=== PATIENT | female | born 1935 | race Caucasian/White ===

== ENCOUNTER 2018-05-23 20:00 | Inpatient (IN) | payer BC, MEDICARE ==
[~2018-05-23] VITALS: Ht 160 cm; Wt 68.5 kg
[2018-05-23 20:00] VITALS: BP 195/83
[~2018-05-23 20:00] MED LIST: ALBUTEROL2.5 MG/3 M INH; HYDRALAZINE HCL10 MG ORAL
--- NOTE | 2018-05-23 20:00 | NUR ---
ED Nurse Note: Received report. Pt LEATHAA from home on simple mask 15L. Pt c/o SOB and left side pleural pain 8/10 when moving. Ambulance personnel said she was running a fever of 102. Pt placed on cardiac cath technician. Will carry out MD's orders.
--- NOTE | 2018-05-23 20:07 | Emergency Room Report ---
History of Present Illness General Chief Complaint: Dyspnea/Respdistress Source: Patient, EMS Present Illness HPI Patient is brought in for chest pain and dyspnea via EMS. She was recently evaluated in the hospital and discharged a week ago. They said she had a urinary tract infection and she's been taking Keflex. She's had a mild cough. She was evaluated in the hospital with a CT angiogram as she's had pleuritic chest pain since March. She says that there was no evidence of blood clot at that time. The pain is right-sided anterior and re-created by touching the area. She rates the pain 8/10 aching and severe. It is constant. She is not on medication for treating the pain. She is reluctant to take opiates because she was at drug rehab counselor. Apparently there was also an MRI performed as an outpatient in the last week. The daughter claims that she has had an irregular heartbeat. She is not familiar with the word atrial fibrillation. No change in bowels, rashes, dizziness, nausea, vomiting. She denies headache or anxiety. When she was discharged from the hospital she went to a rehab facility and her daughter has been staying with her. Allergies: Coded Allergies: PENICILLINS (Verified Allergy, Unknown, 05/23/18) Patient History Past Medical History: see triage record Social History: Denies: smoking Social History Narrative drug rehab counselor Last Menstrual Period: NA Now: No : 1 Para: 1 Reviewed Nursing Documentation: PMH: Agreed; PSxH: Agreed Nursing Documentation-PMH Hx Hypertension: Yes Hx Asthma: Yes Review of Systems All Other Systems: negative except mentioned in HPI Physical Exam Vital Signs Date Time Temp Pulse Resp B/P (MAP) Pulse Ox O2 Delivery O2 Flow Rate FiO2 05/23/18 19:54 102.4 104 20 185/86 99 Nasal Cannula 2.0 Sp02 EP Interpretation: reviewed, normal General Appearance: well appearing, no apparent distress, GCS 15 Head: normocephalic, atraumatic Eyes: bilateral eye normal inspection, bilateral eye PERRL ENT: moist mucus membranes Neck: supple Respiratory: lungs clear, normal breath sounds, other - Right-sided chest wall tenderness Cardiovascular #1: tachycardia, irregularly irregular Cardiovascular #2: 2+ radial (R) Gastrointestinal: normal inspection, normal bowel sounds, non tender, no mass, non-distended Musculoskeletal: back normal, gait/station normal, normal range of motion Neurologic: alert, oriented x3 Skin: normal inspection, warm/dry Medical Decision Making Diagnostic Impression: Primary Impression: Chest pain Qualified Codes: R07.9 - Chest pain, unspecified Additional Impressions: Atrial fibrillation with RVR Fever Qualified Codes: R50.9 - Fever, unspecified Renal insufficiency ER Course Patient presents with fever, pleuritic chest pain and dyspnea. Differential includes acute myocardial infarction, pneumothorax, pneumonia, exacerbation of COPD, UTI resistant to Keflex amongst others. Patient be evaluated with EKG, chest x-ray and labs including blood cultures and lactate. Patient will be treated with IV hydration, analgesia. Consideration for antibiotics based on chest x-ray and lab results. A fib RVR suggested ischemia however this seems to be rate related (I disagree with "STEMI"). Chest x-ray with possible left-sided effusion and small infiltrate. CBC with normal white count with left shift. Minimal anemia. CMP with renal insufficiency. Initial troponin negative. Urinalysis no significant pyuria (recent antibiotics). improved with morphine. The rate is still rapid and the patient is given a dose of diltiazem. Rate is improved after diltiazem. Patient denies pain at this time. Repeat EKG rate 90, normal sinus rhythm voltage criteria for left ventricular hypertrophy. Nonspecific ST-T wave changes. Findings discussed with family members and patient. Discussed with Dr. Peoples who accepts patient. Admit to telemetry. Azithromycin and Cefepime begun based on chest x-ray results. Laboratory Tests Test 05/23/18 20:30 05/24/18 04:55 05/24/18 16:30 05/25/18 06:54 White Blood Count 8.0 K/UL (4.8-10.8) 7.3 K/UL (4.8-10.8) 6.6 K/UL (4.8-10.8) Red Blood Count 3.55 M/UL (4.20-5.40) L 3.31 M/UL (4.20-5.40) L 2.86 M/UL (4.20-5.40) L Hemoglobin 9.5 G/DL (12.0-16.0) L 9.0 G/DL (12.0-16.0) L 7.7 G/DL (12.0-16.0) L Hematocrit 30.4 % (37.0-47.0) L 28.4 % (37.0-47.0) L 24.5 % (37.0-47.0) L Mean Corpuscular Volume 86 FL (80-99) 86 FL (80-99) 86 FL (80-99) Mean Corpuscular Hemoglobin 26.8 PG (27.0-31.0) L 27.0 PG (27.0-31.0) 26.9 PG (27.0-31.0) L Mean Corpuscular Hemoglobin Concent 31.3 G/DL (32.0-36.0) L 31.6 G/DL (32.0-36.0) L 31.5 G/DL (32.0-36.0) L Red Cell Distribution Width 14.0 % (11.6-14.8) 14.2 % (11.6-14.8) 14.2 % (11.6-14.8) Platelet Count 248 K/UL (150-450) 251 K/UL (150-450) 209 K/UL (150-450) Mean Platelet Volume 5.5 FL (6.5-10.1) L 5.7 FL (6.5-10.1) L 5.8 FL (6.5-10.1) L Neutrophils (%) (Auto) % (45.0-75.0) 78.1 % (45.0-75.0) H % (45.0-75.0) Lymphocytes (%) (Auto) % (20.0-45.0) 14.2 % (20.0-45.0) L % (20.0-45.0) Monocytes (%) (Auto) % (1.0-10.0) 5.2 % (1.0-10.0) % (1.0-10.0) Eosinophils (%) (Auto) % (0.0-3.0) 2.2 % (0.0-3.0) % (0.0-3.0) Basophils (%) (Auto) % (0.0-2.0) 0.4 % (0.0-2.0) % (0.0-2.0) Differential Total Cells Counted 100 100 Neutrophils % (Manual) 85 % (45-75) H 82 % (45-75) H Lymphocytes % (Manual) 9 % (20-45) L 10 % (20-45) L Monocytes % (Manual) 5 % (1-10) 5 % (1-10) Eosinophils % (Manual) 1 % (0-3) 3 % (0-3) Basophils % (Manual) 0 % (0-2) 0 % (0-2) Band Neutrophils 0 % (0-8) 0 % (0-8) Platelet Estimate Adequate Adequate Platelet Morphology Normal Normal Hypochromasia 1+ 3+ Anisocytosis 1+ 1+ Prothrombin Time 10.5 SEC (9.30-11.50) Prothrombin Time INR 1.0 (0.9-1.1) PTT 25 SEC (23-33) Urine Color Pale yellow Urine Appearance Clear Urine pH 6 (4.5-8.0) Urine Specific [place] 1.010 (1.005-1.035) Urine Protein 3+ (NEGATIVE) H Urine Glucose (UA) Negative (NEGATIVE) Urine Ketones Negative (NEGATIVE) Urine Blood Negative (NEGATIVE) Urine Nitrite Negative (NEGATIVE) Urine Bilirubin Negative (NEGATIVE) Urine Urobilinogen Normal MG/DL (0.0-1.0) Urine Leukocyte Esterase Negative (NEGATIVE) Urine RBC 0-2 /HPF (0 - 2) Urine WBC 2-4 /HPF (0 - 2) Urine Squamous Epithelial Cells Few /LPF (NONE/OCC) Urine Bacteria Few /HPF (NONE) Sodium Level 142 MMOL/L (136-145) 142 MMOL/L (136-145) 141 MMOL/L (136-145) Potassium Level 4.0 MMOL/L (3.5-5.1) 3.8 MMOL/L (3.5-5.1) 4.0 MMOL/L (3.5-5.1) Chloride Level 105 MMOL/L (98-107) 109 MMOL/L (98-107) H 109 MMOL/L (98-107) H Carbon Dioxide Level 25 MMOL/L (21-32) 22 MMOL/L (21-32) 23 MMOL/L (21-32) Anion Gap 12 mmol/L (5-15) 11 mmol/L (5-15) 9 mmol/L (5-15) Blood Urea Nitrogen 35 mg/dL (7-18) H 35 mg/dL (7-18) H 32 mg/dL (7-18) H Creatinine 1.6 MG/DL (0.55-1.30) H 1.5 MG/DL (0.55-1.30) H 1.2 MG/DL (0.55-1.30) Estimate Glomerular Filtration Rate mL/min (>60) mL/min (>60) mL/min (>60) Glucose Level 112 MG/DL (74-106) H 98 MG/DL (74-106) 104 MG/DL (74-106) Lactic Acid Level 1.30 mmol/L (0.4-2.0) Calcium Level 10.3 MG/DL (8.5-10.1) H 9.6 MG/DL (8.5-10.1) 9.1 MG/DL (8.5-10.1) Total Bilirubin 0.5 MG/DL (0.2-1.0) 0.4 MG/DL (0.2-1.0) 0.3 MG/DL (0.2-1.0) Aspartate Amino Transferase (AST) 21 U/L (15-37) 23 U/L (15-37) 16 U/L (15-37) Alanine Aminotransferase (ALT) 26 U/L (12-78) 24 U/L (12-78) 19 U/L (12-78) Alkaline Phosphatase 84 U/L (46-116) 82 U/L (46-116) 78 U/L (46-116) Total Creatine Kinase 35 U/L (26-308) 23 U/L (26-308) L Troponin I 0.054 ng/mL (0.000-0.056) 0.065 ng/mL (0.000-0.056) 0.036 ng/mL (0.000-0.056) 0.037 ng/mL (0.000-0.056) Pro-B-Type Natriuretic Peptide 1979 pg/mL (0-125) H 2084 pg/mL (0-125) H 1637 pg/mL (0-125) H Total Protein 7.3 G/DL (6.4-8.2) 6.8 G/DL (6.4-8.2) 5.3 G/DL (6.4-8.2) L Albumin 3.0 G/DL (3.4-5.0) L 2.8 G/DL (3.4-5.0) L 2.3 G/DL (3.4-5.0) L Globulin 4.3 g/dL 4.0 g/dL 3.0 g/dL Albumin/Globulin Ratio 0.7 (1.0-2.7) L 0.7 (1.0-2.7) L 0.8 (1.0-2.7) L Magnesium Level 1.6 MG/DL (1.8-2.4) L Creatine Kinase MB 1.2 NG/ML (0.0-3.6) Creatine Kinase MB Relative Index 5.2 Triglycerides Level 122 MG/DL (30-150) Cholesterol Level 156 MG/DL (< 200) LDL Cholesterol 75 mg/dL (<100) HDL Cholesterol 55 MG/DL (40-60) Cholesterol/HDL Ratio 2.8 (3.3-4.4) L Microbiology Date/Time Source Procedure Growth Status 05/23/18 21:16 Nasal Nares Influenza Types A,B Antigen (LINDA) - Final Complete EKG Diagnostic Results Rate: tachycardiac Rhythm: other - a fib ST Segments: other - alleged STEMI, I disagree Rhythm Strip Diag. Results EP Interpretation: yes Rhythm: no PVC's, no ectopy, other - a fib RVR Chest X-Ray Diagnostic Results Chest X-Ray Diagnostic Results : Chest X-Ray Ordered: Yes # of Views/Limited/Complete: 1 View Indication: Chest Pain EP Interpretation: Yes Interpretation: no pneumothorax, other - COPD, left effusion, increased curry left base Impression: Other Electronically Signed by: Electronically signed by Ford Blum MD Status: improved Disposition: ADMITTED INPATIENT Condition: Serious Ford Blum MD May 23, 2018 20:07
[2018-05-23] MEDS ORDERED: Albuterol ud Inhalation HHN ONE (20:15)
[2018-05-23] MEDS ORDERED: Ipratropium 0.02% Inh Soln 2.5ml UD HHN ONE (20:15)
[2018-05-23 21:08] LABS: APPEARANCE,URINE CLEAR; BILIRUBIN, URINE NEGATIVE (NEGATIVE); COLOR,URINE PALE YELLOW; GLUCOSE, URINE (UA) NEGATIVE (NEGATIVE); KETONES,URINE NEGATIVE (NEGATIVE); LEUKOCYTE ESTERASE ,URINE NEGATIVE (NEGATIVE); NITRITE,URINE NEGATIVE (NEGATIVE); PH,URINE 6 (4.5-8.0); PROTEIN,URINE 3+ (NEGATIVE); UROBILINOGEN,URINE NORMAL MG/DL (0.0-1.0)
[2018-05-23 21:15] LABS: HEMATOCRIT 30.4 % (37.0-47.0); HEMOGLOBIN 9.5 G/DL (12.0-16.0); MEAN CORPUSCULAR VOLUME 86 FL (80-99); PLATELET COUNT 248 K/UL (150-450); RED BLOOD COUNT 3.55 M/UL (4.20-5.40)
[2018-05-23 21:41] LABS: ANION GAP 12 mmol/L (5-15); BLOOD UREA NITROGEN 35 mg/dL (7-18); CALCIUM 10.3 MG/DL (8.5-10.1); CARBON DIOXIDE 25 MMOL/L (21-32); CHLORIDE 105 MMOL/L (98-107); CREATININE 1.6 MG/DL (0.55-1.30); SODIUM 142 MMOL/L (136-145)
[2018-05-23 21:52] LABS: ALANINE AMINOTRANSFERASE 26 U/L (12-78); ALBUMIN/GLOBULIN RATIO 0.7 (1.0-2.7); ALKALINE PHOSPHATASE 84 U/L (46-116); ASPARTATE AMINO TRANSFERASE 21 U/L (15-37); BILIRUBIN,TOTAL 0.5 MG/DL (0.2-1.0); CREATINE KINASE 35 U/L (26-308)
[2018-05-23] MEDS ORDERED: dilTIAZem HCl 25mg/5ml Inj IVP ONE (22:00)
[2018-05-23] MEDS ORDERED: Morphine Sulfate 2mg/ml Inj(IV/IM USE ONLY) IVP ONE (22:00)
[2018-05-23] MEDS ORDERED: Azithromycin 500 MG in D5W 275 ML IVPB ONE (22:15)
[2018-05-23] MEDS ORDERED: Cefepime HCl 1 GM in D5W 55 ML IVPB ONE (22:15)
[2018-05-23 22:30] VITALS: BP 144/62
--- NOTE | 2018-05-23 23:50 | NUR ---
NURSE NOTES: Pt transported from ED via gurney, report received from RHIANNON Geronimo via phone. Pt awake, alert and verbally responsive. No SOB, no acute distress on 2 L via NC. Complaining of pressure on the L chest 2/10, per pt "sticky pressure". IV site on L AC #20, patent and intact. Daughter at bedside with list of medications. oriented to staff and unit. Belongings checked with patient and daughter. Put on food beverage attendant that show sinus rhythm. Vital signs as follow: 98.8, 89, 18, 94%, 133/65. Bed at lowest position, call light within reach. Will continue plan of care.
[2018-05-24] VITALS: BP 133/65
--- NOTE | 2018-05-24 00:15 | NUR ---
NURSE NOTES: Called Dr. Peoples for admission orders, no DVT ppx ordered at this time, per MD he will see pt in AM. Also made MD aware that daughter want to make sure that Dr. Leal (bag builder) from [facility] will be included in taking care of her mother. Orders noted and carried out.
--- NOTE | 2018-05-24 01:20 | NUR ---
NURSE NOTES: Received a call from Dr. Watkins, inquiring regarding AFIB RVR at ED, pt now Sinus Rhythm at 86 HR, EKG done at ED also showed Sinus rhythm.
--- NOTE | 2018-05-24 03:48 | NUR ---
NURSE NOTES: Patient asleep, breathing even and unlabored, no s/sx of pain nor any discomfort at this time. school lunch monitor shows sinus rhythm at 91. Bed at lowest position, call light within reach. Will continue to monitor.
[2018-05-24 04:00] VITALS: BP 135/89
--- NOTE | 2018-05-24 04:15 | NUR ---
NURSE NOTES: Patient complaining of pressure/pain on L chest 12/15, school bus monitor shows sinus tachy at 104, Dr. Peoples made aware, obtained an order for one time order of Dilaudid 2 mg IVP. Noted and carried out.
--- NOTE | 2018-05-24 04:50 | NUR ---
NURSE NOTES: Pt assisted to the bathroom, per pt pain went down to 1/10, comfortable at this time. site monitor shows sinus rhythm at 93.
--- NOTE | 2018-05-24 07:05 | NUR ---
HAND-OFF: Report given to RHIANNON Hidalgo. Endorsed plan of care.
--- NOTE | 2018-05-24 07:08 | NUR ---
NURSE NOTES: Received bedside report from Kristyn JURADO. Pt. in bed, a/o x 4. No sign of distress. On O2 at 2LPM via NC. C/O mild discomfort. Afebrile. IV line at left AC #18g. in placed patent/intact running NS @ 75cc/hr. Bed in low position, locked. Call light within reach. Will cont. to monitor.
[2018-05-24 07:09] LABS: BASOPHILS % (AUTO) 0.4 % (0.0-2.0); EOSINOPHILS % (AUTO) 2.2 % (0.0-3.0); HEMATOCRIT 28.4 % (37.0-47.0); LYMPHOCYTES % (AUTO) 14.2 % (20.0-45.0); MEAN CORPUSCULAR VOLUME 86 FL (80-99); MONOCYTES % (AUTO) 5.2 % (1.0-10.0); NEUTROPHILS % (AUTO) 78.1 % (45.0-75.0); PLATELET COUNT 251 K/UL (150-450); RED BLOOD COUNT 3.31 M/UL (4.20-5.40); RED CELL DISTRIBUTION WIDTH 14.2 % (11.6-14.8); WHITE BLOOD COUNT 7.3 K/UL (4.8-10.8)
[2018-05-24 07:24] LABS: ALANINE AMINOTRANSFERASE 24 U/L (12-78); ALBUMIN 2.8 G/DL (3.4-5.0); ALBUMIN/GLOBULIN RATIO 0.7 (1.0-2.7); ALKALINE PHOSPHATASE 82 U/L (46-116); ANION GAP 11 mmol/L (5-15); ASPARTATE AMINO TRANSFERASE 23 U/L (15-37); BILIRUBIN,TOTAL 0.4 MG/DL (0.2-1.0); BLOOD UREA NITROGEN 35 mg/dL (7-18); CALCIUM 9.6 MG/DL (8.5-10.1); CARBON DIOXIDE 22 MMOL/L (21-32); CHLORIDE 109 MMOL/L (98-107); CREATININE 1.5 MG/DL (0.55-1.30); POTASSIUM 3.8 MMOL/L (3.5-5.1); SODIUM 142 MMOL/L (136-145)
[2018-05-24 08:00] VITALS: BP 178/89
[2018-05-24] MEDS: HydrALAZINE 50mg tab ORAL SCH ×2 (08:31→17:13)
[2018-05-24] MEDS ORDERED: Lexiscan 0.4mg/5ml syringe IV PRN ×2 (08:45→13:00)
[2018-05-24] MEDS: Wixela 250/50 Inhaler - 60 dose INH SCH ×2 (09:09→09:11)
--- NOTE | 2018-05-24 09:21 | NUR ---
NURSE NOTES: Called Dr. Peoples and left a message. Awaiting for response.
--- NOTE | 2018-05-24 09:21 | NUR ---
CASE MANAGEMENT:REVIEW BIBA FROM HOME CC: SOB. CHEST PAIN SI:FEVER. CHEST PAIN. AFIB W/RVR. 102.4 104 20 185/86 99% ON 2L/NC H/H-9.5/30.4 BUN+35 CR+1.6 IS: IV CARDIZEM IV MORPHINE IV CEFEPIME IV AZITHROMYCIN DUONEB HHN 1L NS BOLUS TYLENOL PO CHEST XRAY BLOOD CX : TO TELEMETRY INTERQUAL CRITERIA MET
--- NOTE | 2018-05-24 10:03 | NUR ---
*-* INSURANCE CLINICALS AND REVIEW HAVE BEEN [place]XED TO: [facility] [place] F:[phone]
--- NOTE | 2018-05-24 10:40 | NUR ---
NURSE NOTES: Dwayne (technical services analyst) called up and told RN since pt. has active asthma dx per Dr. Watkins they will do stress test tomorrow and wait till the troponin to trend down. Informed daughter at bedside and got upset and insisted that they done it before in another hospital inspite the risk about the test. WILMER Thompson also informed pt and pt's daughter re md recommendation to wait for troponin downtrend. pt dtr wants to talk to md. will follow up.
[2018-05-24] MEDS ORDERED: HYDROmorphone 1mg/ml Carpuject IVP SCH (11:20)
--- NOTE | 2018-05-24 11:42 | NUR ---
NURSE NOTES: Spoke to pt. asked if she having pain like "last night" pain per daughter. According to the pt. right now she is ok, when they are doing the 2D echo it hurt. Pt. refused the x1 dilaudid order from Dr. Peoples. Will cont. to monitor.
--- NOTE | 2018-05-24 11:59 | Diagnostic Imaging Report ---
Indication: Chest pain Comparison: None A single view chest radiograph was obtained. Findings: There is basilar atelectasis present. No definite infiltrate or pulmonary vascular congestion identified. The heart is enlarged. The aorta is mildly enlarged consistent with atherosclerotic vascular disease. The bones are osteopenic. Impression: No acute disease
[2018-05-24 12:00] VITALS: BP 123/55
[2018-05-24 16:00] VITALS: BP 119/55
[2018-05-24 18:14] LABS: CKMB 1.2 NG/ML (0.0-3.6)
--- NOTE | 2018-05-24 18:30 | History and Physical Report ---
DATE OF ADMISSION: 05/23/2018 HISTORY OF PRESENT ILLNESS: This is an 83-year-old female, who was admitted to the hospital after presenting to the ER with left inframammary chest pain and shortness of breath. The patient reports that she was seen at Hospital. I reviewed the records from 04/18/2018 where she was seen at Hospital with shortness of breath. At that point, she had a complete workup including CT chest, which was negative for pulmonary embolism, negative chest x-ray. Normal laboratory workup except for hemoglobin 9.4, which was unexplained. The patient subsequently saw her primary instructional writer, Dr. Celestine Leal, with documents that she reportedly has had [place] pharmacologic [place] [facility] [place] and that she was having nonexertional chest pain. The patient has been on steroids for arthritis and has a longstanding history of asthma as well. She was at that time also started on amlodipine. A concern was noted for possible underlying CAD. PAST MEDICAL HISTORY: The patient's past history is notable for asthma, hypertension, arthritis, renal abnormality, hyperlipidemia, hypertension, previous back surgery, corneal transplant, previous omentectomy and hysterectomy. HOME MEDICATIONS: Include clonidine, Zyrtec, Lexapro, Nexium, Advair, hydralazine, Tirosint, Cozaar, Hyzaar, Vigamox, Pred-Forte eyedrops, and Zocor. ALLERGIES: Penicillin and sulfated oil. REVIEW OF SYSTEMS: The patient denies any headaches, hematemesis, melena, or hematochezia. PHYSICAL EXAMINATION: GENERAL: Revealed an 83-year-old elderly female. HEENT: Unremarkable. CHEST: Clear breath sounds bilaterally. HEART: Normal heart sounds. ABDOMEN: Soft. NEUROLOGIC: Nonfocal. VITAL SIGNS: Blood pressure is 150/70, heart rate 74, and respiratory rate 18. She is afebrile. LABORATORY AND IMAGING DATA: Lab testing obtained overnight shows hemoglobin 9, which is similar to hemoglobin 10 a month ago. Chemistries are notable for creatinine 0.5. Troponin is 0.065, which is borderline elevated. Coags are negative. Urinalysis negative. Imaging studies, none. IMPRESSION: 1. Left inframammary chest pain, concern high for coronary syndrome. 2. Multiple medical problems of hypertension, hyperlipidemia, asthma, and degenerative arthritis. DISCUSSION: Admit to the hospital. We will consult Cardiology. I suspect this may be a cardiac problem. We will institute blood pressure control. Continue medications. We will follow carefully. Jim Peoples M.D. DR: RIRI JOB#: [id number] CC:
--- NOTE | 2018-05-24 19:35 | NUR ---
HAND-OFF: Report given to Mack JURADO. Pt. remain stable.
--- NOTE | 2018-05-24 19:36 | NUR ---
NURSE NOTES: Received report from RHIANNON Lim. Pt is awake and resting in bed. In no acute distress. Daughter is at bedside. Bed in lowest position, call light within reach. Will continue plan of care.
[2018-05-24] MEDS: Albuterol 90mcg Inhaler 8gm INH PRN (19:51)
[2018-05-24 20:00] VITALS: BP 145/60
[2018-05-24] MEDS: Atorvastatin 20mg tab ORAL SCH (20:43)
[2018-05-24] MEDS: Losartan 50mg tab ORAL SCH (20:43)
[2018-05-25] VITALS: BP 96/63
--- NOTE | 2018-05-25 03:30 | Progress Note ---
DATE: 05/24/2018 CARDIOLOGY PROGRESS NOTE SUBJECTIVE: The patient feels better today. No recurring chest pain, palpitations, or shortness of breath. OBJECTIVE: VITAL SIGNS: Blood pressure 150/70, pulse 74, and respirations 18. LUNGS: Clear. CARDIAC: Regular. Normal S1, S2. ABDOMEN: Soft. EXTREMITIES: Trace edema. LABORATORY DATA: White count 7.3, hemoglobin 9. Troponin is 0.065, repeated 0.036. Magnesium 1.6. BUN 35, creatinine 1.5. IMPRESSION: 1. Paroxysmal atrial fibrillation with rapid ventricular response. 2. Acute myocardial ischemia precipitated by above. 3. Crescendo angina. 4. History of asthma with no active bronchospasm. 5. Hypomagnesemia. 6. Acute on chronic diastolic congestive heart failure. PLAN: 1. IV magnesium. 2. Antiplatelet therapy. 3. Continue statin drug. 4. Cautiously hydrate. 5. Consider additional Cardizem for recurring atrial fibrillation. 6. Myocardial perfusion scan for assessment of coronary flow reserve. Ford Watkins M.D. DR: BRETT JOB#: [id number] CC:
[2018-05-25 04:00] VITALS: BP 142/70
--- NOTE | 2018-05-25 07:30 | NUR ---
NURSE NOTES: Received report from Mack JURADO. Pt is awake, alert, oriented x4, laying in bed at high charles's. On 3L of oxygen via nasal cannula. Denies pain, reports fatigue. IV access on left AC #18G infusing NS at 75mL/hour. Skin is intact. Currently NPO since midnight, in preparation for stress test. Bedside commode set up. Pt needs assistance to use bedside commode, although pt states at home, she ambulates by herself with no use of any assistive devices. Call light is placed within easy reach, bed in lowest position, two side rails up, brakes engaged, alarm on.
--- NOTE | 2018-05-25 07:33 | NUR ---
CASE MANAGEMENT:REVIEW 05/25/18 SI: PAFIB. AMI. AC/CHR HF CRESCENDO ANGINA 98.2 75 20 142/70 98% ON 2L/NC IS: CLONIDINE PO QHS COZAAR PO QHS SYMBICORT INH BID HYDRALAZINE PO BID PREDNISONE PO QD PROTONIX PO QAM IVF@75/HR : TELEMETRY STATUS DCP: PATIENT IS FROM HOME PLAN PER SCHEDULE CHECKER PLAN: 1. IV magnesium. 2. Antiplatelet therapy. 3. Continue statin drug. 4. Cautiously hydrate. 5. Consider additional Cardizem for recurring atrial fibrillation. LEXISCAN STRESS TEST 6. Myocardial perfusion scan for assessment of coronary flow reserve.
[2018-05-25 07:46] LABS: HEMATOCRIT 24.5 % (37.0-47.0); HEMOGLOBIN 7.7 G/DL (12.0-16.0); MEAN CORPUSCULAR VOLUME 86 FL (80-99); PLATELET COUNT 209 K/UL (150-450); RED BLOOD COUNT 2.86 M/UL (4.20-5.40); RED CELL DISTRIBUTION WIDTH 14.2 % (11.6-14.8); WHITE BLOOD COUNT 6.6 K/UL (4.8-10.8)
--- NOTE | 2018-05-25 07:49 | NUR ---
HAND-OFF: Report given to RHIANNON Donis.
[2018-05-25 08:00] VITALS: BP 188/94
--- NOTE | 2018-05-25 08:07 | Pulmonology Progress Note ---
Assessment/Plan Assessment/Plan IMPRESSION: 1. Left inframammary chest pain, concern high for coronary syndrome. 2. Multiple medical problems of hypertension, hyperlipidemia, asthma, and degenerative arthritis. 3. Anemia. DISCUSSION: Appreciate cardiology consultation. I suspect this may be a cardiac problem. Continue blood pressure control. Continue medications. I will follow carefully. Discussed with daughter For stress test today Consider GI workup for anemia Jim Peoples M.D. Subjective Interval Events: Hgb 7.7 today; no further chest pain but reports pressure; very anxious Constitutional: Reports: no symptoms HEENT: Repors: no symptoms Respiratory: Reports: no symptoms Cardiovascular: Reports: no symptoms Gastrointestinal/Abdominal: Reports: no symptoms Genitourinary: Reports: no symptoms Neurologic: Reports: no symptoms Allergies: Coded Allergies: PENICILLINS (Verified Allergy, Unknown, 05/23/18) Objective Last 24 Hour Vital Signs Date Time Temp Pulse Resp B/P (MAP) Pulse Ox O2 Delivery O2 Flow Rate FiO2 05/25/18 04:00 98.2 75 20 142/70 (94) 98 05/25/18 04:00 75 05/25/18 00:00 86 05/25/18 00:00 98.7 86 18 96/63 (74) 95 05/24/18 21:00 Room Air 2.0 Nasal Cannula 05/24/18 20:43 137/64 05/24/18 20:43 137/64 05/24/18 20:02 76 20 96 Nasal Cannula 2.0 28 05/24/18 20:00 98.4 85 20 145/60 (88) 96 05/24/18 20:00 85 05/24/18 19:53 95 Nasal Cannula 2.0 28 05/24/18 19:53 Nasal Cannula 2.0 28 05/24/18 19:52 85 20 Nasal Cannula 2.0 28 05/24/18 19:48 85 20 95 Nasal Cannula 2.0 05/24/18 17:13 119/55 05/24/18 16:00 98.0 67 21 119/55 (76) 96 05/24/18 15:10 69 05/24/18 12:00 98.2 85 20 123/55 (77) 96 05/24/18 11:51 73 05/24/18 10:32 167/70 05/24/18 09:14 86 22 Nasal Cannula 2.0 28 05/24/18 09:13 84 22 95 Nasal Cannula 2.0 28 05/24/18 09:00 Nasal Cannula 2.0 Nasal Cannula 2.0 05/24/18 08:31 178/89 Intake and Output 05/24/18 05/25/18 19:00 07:00 Intake Total 1435 ml Output Total 450 ml Balance 1435 ml -450 ml Intake Oral 760 ml IV Total 675 ml Output Urine Total 450 ml # Voids 2 4 # Bowel Movements 2 General Appearance: no acute distress HEENT: normocephalic Respiratory/Chest: chest wall non-tender, lungs clear Cardiovascular: normal peripheral pulses, normal rate Abdomen: normal bowel sounds, soft, non tender Extremities: no cyanosis Microbiology Date/Time Source Procedure Growth Status 05/23/18 20:30 Blood Blood Culture - Preliminary NO GROWTH AFTER 24 HOURS Resulted 05/23/18 20:30 Blood Blood Culture - Preliminary NO GROWTH AFTER 24 HOURS Resulted 05/23/18 21:16 Nasal Nares Influenza Types A,B Antigen (LINDA) - Final Complete Laboratory Tests 05/24/18 16:30: Total Creatine Kinase 23L, Creatine Kinase MB 1.2, Creatine Kinase MB Relative Index 5.2, Troponin I 0.036 05/25/18 06:54: Troponin I [Pending], White Blood Count 6.6, Red Blood Count 2.86L, Hemoglobin 7.7L, Hematocrit 24.5L, Mean Corpuscular Volume 86, Mean Corpuscular Hemoglobin 26.9L, Mean Corpuscular Hemoglobin Concent 31.5L, Red Cell Distribution Width 14.2, Platelet Count 209, Mean Platelet Volume 5.8L, Neutrophils (%) (Auto) , Lymphocytes (%) (Auto) , Monocytes (%) (Auto) , Eosinophils (%) (Auto) , Basophils (%) (Auto) , Neutrophils % (Manual) [Pending], Lymphocytes % (Manual) [Pending], Platelet Estimate [Pending], Platelet Morphology [Pending], Sodium Level [Pending], Potassium Level [Pending], Chloride Level [Pending], Carbon Dioxide Level [Pending], Blood Urea Nitrogen [Pending], Creatinine [Pending], Estimat Glomerular Filtration Rate [Pending], Glucose Level [Pending], Calcium Level [Pending], Total Bilirubin [Pending], Aspartate Amino Transf (AST/SGOT) [ Pending], Alanine Aminotransferase (ALT/SGPT) [Pending], Alkaline Phosphatase [ Pending], Pro-B-Type Natriuretic Peptide [Pending], Total Protein [Pending], Albumin [Pending], Globulin [Pending], Triglycerides Level [Pending], Cholesterol Level [Pending], LDL Cholesterol [Pending], HDL Cholesterol [Pending ], Cholesterol/HDL Ratio [Pending] Current Medications Medications (Trade) Dose Ordered Sig/Damari Route PRN Reason Start Time Stop Time Status Last Admin Dose Admin Acetaminophen (Tylenol) 650 mg Q6H PRN ORAL Mild Pain/Temp > 100.5 05/24/18 04:15 06/23/18 04:14 Albuterol Sulfate (Proventil MDI) 2 puff Q12H PRN INH Shortness of Breath 05/24/18 09:45 06/23/18 09:44 05/24/18 19:51 Atorvastatin Calcium (Lipitor) 20 mg BEDTIME ORAL 05/24/18 21:00 06/23/18 20:59 05/24/18 20:43 Budesonide/ Formoterol Fumarate (Symbicort 160/ 4.5) 2 puff TWICE A DAY INH 05/24/18 18:00 06/23/18 17:59 05/24/18 19:51 Cetirizine HCl (ZyrTEC) 10 mg DAILY ORAL 05/24/18 09:00 06/23/18 08:59 05/24/18 08:34 Clonidine HCl (Catapres Tab) 0.1 mg Q4H PRN ORAL sbp>150 05/24/18 08:45 06/23/18 08:44 05/24/18 10:32 Clonidine HCl (Catapres Tab) 0.1 mg QHS ORAL 05/24/18 21:00 06/23/18 20:59 05/24/18 20:43 Hydralazine HCl (Apresoline) 100 mg QPM ORAL 05/24/18 16:30 06/23/18 16:29 05/24/18 17:13 Hydralazine HCl (Apresoline) 150 mg DAILY ORAL 05/24/18 09:00 06/23/18 08:59 05/24/18 08:31 Levothyroxine Sodium (Synthroid) 88 mcg DAILY@0630 ORAL 05/24/18 06:30 06/23/18 06:29 05/25/18 06:29 Losartan Potassium (Cozaar) 100 mg QHS ORAL 05/24/18 21:00 06/23/18 20:59 05/24/18 20:43 Pantoprazole (Protonix) 40 mg ACBREAKFAST ORAL 05/24/18 06:30 06/23/18 06:29 05/25/18 06:29 Prednisone (predniSONE) 5 mg DAILY ORAL 05/24/18 09:00 06/23/18 08:59 05/24/18 08:31 Regadenoson (Lexiscan) 0.4 mg ONCE PRN IV STRESS TEST 05/24/18 13:00 05/25/18 18:00 Sodium Chloride 1,000 ml @ 75 mls/hr [id number] IV 05/24/18 02:00 06/23/18 01:59 05/24/18 19:14 Jim Peoples MD May 25, 2018 08:07
[2018-05-25 08:56] LABS: ALANINE AMINOTRANSFERASE 19 U/L (12-78); ALBUMIN 2.3 G/DL (3.4-5.0); ALBUMIN/GLOBULIN RATIO 0.8 (1.0-2.7); ALKALINE PHOSPHATASE 78 U/L (46-116); ANION GAP 9 mmol/L (5-15); ASPARTATE AMINO TRANSFERASE 16 U/L (15-37); BILIRUBIN,TOTAL 0.3 MG/DL (0.2-1.0); BLOOD UREA NITROGEN 32 mg/dL (7-18); CALCIUM 9.1 MG/DL (8.5-10.1); CARBON DIOXIDE 23 MMOL/L (21-32); CHLORIDE 109 MMOL/L (98-107); CHOLESTEROL 156 MG/DL (< 200); CREATININE 1.2 MG/DL (0.55-1.30); HDL CHOLESTEROL 55 MG/DL (40-60); SODIUM 141 MMOL/L (136-145); TRIGLYCERIDES 122 MG/DL (30-150)
--- NOTE | 2018-05-25 09:20 | NUR ---
NURSE NOTES: Spoke with Dr Watkins on the phone, and informed him regarding pt's BP 188/94, and Hbg 7.7 today. No new orders given. Morning meds administered as ordered/instructed.
--- NOTE | 2018-05-25 09:30 | NUR ---
NURSE NOTES: Received call at nurse's station from Dwayne from Cardiology, informing me that per Dr Watkins stress test for today has been cancelled.
[2018-05-25] MEDS: Albuterol 90mcg Inhaler 8gm INH PRN (09:50)
[2018-05-25] MEDS: HydrALAZINE 50mg tab ORAL SCH ×2 (09:52→17:18)
[2018-05-25 12:00] VITALS: BP 157/69
[2018-05-25 16:00] VITALS: BP 143/63
--- NOTE | 2018-05-25 18:45 | NUR ---
NURSE NOTES: Pt was transfused 1 unit of PRBC as ordered by Dr Peoples. Tolerated well with no signs/symptoms of any reactions. Will endorse to next shift for additional unit of transfusion to be picked up from the blood bank.
--- NOTE | 2018-05-25 19:30 | NUR ---
NURSE NOTES: Received report from Kev Leon RN. Pt is resting in the bed in 3L NC. No respiratory distress. No s/s of infection on IV site. Safety measures are applied with bed alarm on and bed in lowest position with side rails up x3, and breaks are engaged. Call light and side table are w/in reach. Pt was informed she will be received PRBC 1 U.
--- NOTE | 2018-05-25 19:42 | NUR ---
HAND-OFF: Report given to Fiordaliza JURADO. Pt is resting in bed in stable condition. Endorsed plan of care.
[2018-05-25 20:00] VITALS: BP 156/71
[2018-05-25] MEDS: Losartan 50mg tab ORAL SCH (21:35)
[2018-05-25] MEDS: Atorvastatin 20mg tab ORAL SCH (21:36)
--- NOTE | 2018-05-25 22:52 | NUR ---
NURSE NOTES: PRBC transfusion started [id number]. Will continue to monitor. Addendum: 05/26/18 at 0157 by SUNIL BARRETT RN Transfusion is completed at 0130, 05/26/2018. Post transfusion VS, BP 148/68, t 97.7, VT 68. No reaction noted.
[2018-05-26] VITALS: BP 144/64
[2018-05-26 04:00] VITALS: BP 179/77
[2018-05-26] MEDS: HYDROcodone/Acetamin 5/325 tab ORAL PRN ×2 (06:53→20:42)
--- NOTE | 2018-05-26 07:15 | NUR ---
HAND-OFF: Report given to Kev Leon RN. Endorsed that pt had CP 8/10 [id number] and [place] [address] Peoples's order. Currently, no c/o CP. Addendum: 05/26/18 at 0806 by SUNIL BARRETT RN Currently, Pt is in 3L NC. Endorsed that Dr. Peoples is aware that pt had sudden CP 8/10 in the morning. No lab orders were given.
--- NOTE | 2018-05-26 07:20 | NUR ---
NURSE NOTES: Received report from Fiordaliza JURADO. Pt is awake, alert, oriented x4, sitting up in bed, having breakfast. On 3L of oxygen via nasal cannula. Pt reports relief of chest-pain experienced during previous shift, after being given [place] PO by retail shift manager nurse. IV access on left AC #18G, infusing NS at 75mL/hr. Skin is intact. Bedside commode setup. BP this morning, 147/60, was given PRN Clonidine by previous shift nurse. Call light is placed within easy reach, bed in lowest position, two side rails up, brakes engaged, alarm on.
--- NOTE | 2018-05-26 07:52 | NUR ---
CASE MANAGEMENT:REVIEW 05/26/2018 SI: AFIB. AMI. AC/CHR HF CRESCENDO ANGINA T 97.3 HR 74 RR 20 B/P 179/77 SATS 97% ON 2L/NC NO AML AVAILABLE IS: CLONIDINE PO QHS COZAAR PO QHS SYMBICORT INH BID HYDRALAZINE PO BID PREDNISONE PO QD PROTONIX PO QAM IVF@75 mL/HR : TELEMETRY STATUS DCP: PATIENT IS FROM HOME PLAN PER BOILER SERVICE TECHNICIAN Antiplatelet therapy. Continue statin drug. Cautiously hydrate. [place] STRESS TEST>>> Myocardial perfusion scan for assessment of coronary flow reserve.
[2018-05-26 08:00] VITALS: BP 147/60
--- NOTE | 2018-05-26 08:04 | Nephrology Progress Note ---
Assessment/Plan Assessment/Plan A/P 1) ACS/Chest Pain- with exertion - Myocardial perfusion scan for assessment of coronary flow reserve on Monday - appreciate cardiology 2) HTN- elevated. Will DC IVFs 3) Hypothyroid- synthroid 4) Asthma- inhalers Subjective Date patient seen: May 26, 2018 Time patient seen: 08:00 ROS Limited/Unobtainable: No Cardiovascular: Reports: chest pain Allergies: Coded Allergies: PENICILLINS (Verified Allergy, Unknown, 05/23/18) Subjective PAtient resting, CP with exertion Objective Last 24 Hour Vital Signs Date Time Temp Pulse Resp B/P (MAP) Pulse Ox O2 Delivery O2 Flow Rate FiO2 05/26/18 07:44 96 Nasal Cannula 2.0 28 05/26/18 07:44 87 16 Nasal Cannula 2.0 28 05/26/18 07:44 Nasal Cannula 2.0 28 05/26/18 06:35 179/77 05/26/18 04:00 97.3 74 20 179/77 (111) 97 05/26/18 03:52 68 05/26/18 00:00 97.5 58 18 144/64 (90) 96 05/25/18 23:50 66 05/25/18 21:36 156/71 05/25/18 21:35 156/71 05/25/18 21:00 Nasal Cannula 2.0 05/25/18 20:02 82 16 98 Nasal Cannula 2.0 28 05/25/18 20:02 82 16 Nasal Cannula 2.0 28 05/25/18 20:02 98 Nasal Cannula 2.0 28 05/25/18 20:02 Nasal Cannula 2.0 28 05/25/18 20:00 98.8 77 20 156/71 (99) 95 05/25/18 19:57 83 18 97 Nasal Cannula 2.0 28 05/25/18 19:32 80 05/25/18 17:18 146/76 05/25/18 16:00 97.4 97 22 143/63 (89) 96 05/25/18 16:00 87 05/25/18 12:00 92 05/25/18 12:00 98.0 101 22 157/69 (98) 97 05/25/18 09:52 188/94 05/25/18 09:10 78 16 97 Nasal Cannula 2.0 28 05/25/18 09:10 Nasal Cannula 2.0 28 05/25/18 09:10 95 Nasal Cannula 2.0 28 05/25/18 09:10 80 18 95 Nasal Cannula 2.0 05/25/18 09:10 80 16 Nasal Cannula 2.0 28 05/25/18 09:00 Room Air 2.0 Nasal Cannula Intake and Output 05/25/18 05/26/18 19:00 07:00 Intake Total 360 ml Balance 360 ml Intake Oral 360 ml # Voids 2 # Bowel Movements 2 Height (Feet): 5 Height (Inches): 3.00 Weight (Pounds): 150 General Appearance: no apparent distress, alert EENT: normal ENT inspection Neck: normal alignment, supple Cardiovascular: normal rate, regular rhythm Respiratory/Chest: lungs clear, normal breath sounds Abdomen: non tender, soft Pelvis: normal rectal exam, speculum exam normal Edema: no edema noted Arm (L), no edema noted Arm (R), no edema noted Leg (L), no edema noted Leg (R), no edema noted Pedal (L), no edema noted Pedal (R), no edema noted Generalized Sarabjit Roberts MD May 26, 2018 08:04
[2018-05-26] MEDS: HydrALAZINE 50mg tab ORAL SCH ×2 (08:56→16:25)
--- NOTE | 2018-05-26 11:15 | Progress Note ---
DATE: 05/25/2018 CARDIOLOGY PROGRESS NOTE SUBJECTIVE: The patient has not had any chest pain at rest. Monitored rhythm sinus with atrial ectopy. No recurring AFib. OBJECTIVE: VITAL SIGNS: Blood pressure 156/71, pulse 66, respiratory rate 18. LUNGS: Clear. CARDIAC: Regular. Normal S1, S2 with a fourth heart sound. ABDOMEN: Soft. EXTREMITIES: No edema. LABORATORY DATA: White count 6.6, hemoglobin 7.7. Potassium 4, BUN 32, creatinine 1.2. Troponin negative. Albumin 2.3. IMPRESSION: 1. Worsening anemia. 2. Acute myocardial ischemia, resolved. 3. Paroxysmal atrial fibrillation. 4. Severe protein-calorie malnutrition. 5. Hypertensive heart disease. 6. Severe pulmonary hypertension. 7. History of asthma. 8. Degenerative valve disease. PLAN: 1. Defer stress test due to worsening anemia. 2. Packed red blood cell transfusion has been requested. 3. Continue antianginal regimen. 4. Anemia workup per primary care physician. Ford Watkins M.D. DR: eBrnie JOB#: [id number] CC:
[2018-05-26 12:00] VITALS: BP 145/87
[2018-05-26 16:00] VITALS: BP 180/75
[2018-05-26 17:47] LABS: HEMATOCRIT 33.1 % (37.0-47.0); HEMOGLOBIN 10.8 G/DL (12.0-16.0); MEAN CORPUSCULAR VOLUME 87 FL (80-99); PLATELET COUNT 217 K/UL (150-450); RED BLOOD COUNT 3.82 M/UL (4.20-5.40); RED CELL DISTRIBUTION WIDTH 13.5 % (11.6-14.8); WHITE BLOOD COUNT 6.2 K/UL (4.8-10.8)
[2018-05-26 18:23] LABS: ALANINE AMINOTRANSFERASE 20 U/L (12-78); ALBUMIN 2.6 G/DL (3.4-5.0); ALBUMIN/GLOBULIN RATIO 0.7 (1.0-2.7); ALKALINE PHOSPHATASE 90 U/L (46-116); ANION GAP 10 mmol/L (5-15); ASPARTATE AMINO TRANSFERASE 17 U/L (15-37); BILIRUBIN,TOTAL 0.3 MG/DL (0.2-1.0); BLOOD UREA NITROGEN 31 mg/dL (7-18); CALCIUM 10.2 MG/DL (8.5-10.1); CARBON DIOXIDE 23 MMOL/L (21-32); CHLORIDE 106 MMOL/L (98-107); CREATININE 1.5 MG/DL (0.55-1.30); POTASSIUM 4.2 MMOL/L (3.5-5.1); SODIUM 139 MMOL/L (136-145)
--- NOTE | 2018-05-26 18:44 | NUR ---
NURSE NOTES: Left message for Dr Watkins to report Mg=1.6
[2018-05-26] MEDS: Albuterol 90mcg Inhaler 8gm INH PRN (19:25)
[2018-05-26] MEDS ORDERED: NS 275ml ONE (19:30)
[2018-05-26] MEDS ORDERED: Tubing Blood Filter IV ONE (19:30)
--- NOTE | 2018-05-26 19:40 | NUR ---
HAND-OFF: Report given to Sharona JURADO. Pt is resting in bed in stable conditon. Endorsed plan of care.
--- NOTE | 2018-05-26 19:45 | NUR ---
NURSE NOTES: Received report from RHIANNON Donis. Patient is awake lying semi-charles's; resting comfortably. No signs of acute distress noted; complains of pain. On 3L nasal cannula. AOx4; able to make needs known. Ambulates to the bedside commode with assistance. Checked IV site; patent and flushed. No erythema, bleeding, or infiltration noted. Bedside commode easily accessible. Bed at lowest position, brakes on, siderails up x3. Call light within reach. Will continue to monitor.
[2018-05-26 20:00] VITALS: BP 164/74
[2018-05-26] MEDS: Atorvastatin 20mg tab ORAL SCH (20:41)
[2018-05-26] MEDS: Losartan 50mg tab ORAL SCH (20:41)
[2018-05-26] MEDS: dilTIAZem HCl CD 180mg cap ORAL SCH (20:44)
--- NOTE | 2018-05-26 23:30 | Progress Note ---
DATE: 05/26/2018 CARDIOLOGY PROGRESS NOTE SUBJECTIVE: The patient still feels short of breath with tightness around her abdomen and lower chest with ambulation. She was transfused 2 units of packed red blood cells yesterday. OBJECTIVE: VITAL SIGNS: Blood pressure 180/75, pulse 67, respiratory rate 20. LUNGS: Few rales. CARDIAC: Regular rhythm and rate. Normal S1, S2. ABDOMEN: Soft and obese. EXTREMITIES: With trace edema. LABORATORY DATA: White count 5.2, hemoglobin 10.8. Pro-natriuretic peptide 1520. Albumin 2.6. BUN 31, creatinine 1.5, potassium 4.2, magnesium 1.6. IMPRESSION: 1. Hypertensive urgency. 2. Anemia, status post transfusion. 3. Acute on chronic kidney injury following diuresis. 4. Acute on chronic diastolic congestive heart failure. 5. Moderate protein-calorie malnutrition. 6. Hypomagnesemia. PLAN: 1. Diuresis based on clinical parameters. 2. IV magnesium replacement. 3. Monitor hemoglobin. 4. Advance antihypertensive. 5. Myocardial perfusion scan to follow. Ford Watkins M.D. DR: Bernie JOB#: [id number] CC:
--- NOTE | 2018-05-26 23:45 | Consultation ---
DATE OF CONSULTATION: 05/23/2018 CARDIOLOGY CONSULTATION CONSULTING PHYSICIAN: Ford Watkins M.D. REQUESTING PHYSICIAN: Jim Peoples M.D. REASON FOR CONSULTATION: Chest pain with new onset atrial fibrillation. HISTORY OF PRESENT ILLNESS: This is an 83-year-old female, presented to the emergency room with increasing shortness of breath and chest pain. She noted to be unremitting, but worse with exertion. She has not been on any pain medications. She also was noted to have an irregular heart beat today. She is unaware of a prior history of atrial fibrillation. The patient was recently hospitalized at an outside hospital for urinary tract infection. She also had some pleuritic chest pain and had a CT angiogram that was reportedly negative for pulmonary emboli. PAST MEDICAL HISTORY: Includes asthma, hypertension, osteoarthritis, hyperlipidemia, history of omentectomy, hysterectomy, and corneal transplant. ALLERGIES: Penicillin. MEDICATIONS: Reviewed and reconciled. SOCIAL HISTORY: Negative for smoking, alcohol, or substance abuse. She worked as a drug rehabilitation counselor. REVIEW OF SYSTEMS: No fevers or chills. She has decreasing cough since her hospital stay. No sputum production. She has asthma and uses inhalers regularly. There is no history of abnormal blood clotting. There is no history of seizure or stroke. She denies any change in bowel habits. She recently was treated for urinary tract infection and does not have any current symptoms. She does not know her cholesterol level and does not take any thyroid medication and there is no history of diabetes mellitus. PHYSICAL EXAMINATION: VITAL SIGNS: Temperature 102.4, blood pressure 185/86, heart rate 104, and respiratory rate 20. HEENT: Conjunctivae are pink. Oropharynx clear. NECK: Supple. LUNGS: With coarse breath sounds. No wheezing. CARDIAC: Irregularly irregular rhythm. Normal S1 and S2. A 1/6 systolic apical murmur. ABDOMEN: Soft and nontender. EXTREMITIES: With trace dependent edema. DIAGNOSTIC AND LABORATORY DATA: EKG, atrial fibrillation with nonspecific ST-T wave changes on initial presentation, however following dose of diltiazem, repeat EKG revealed sinus rhythm with left ventricular hypertrophy and nonspecific ST-T wave changes. White count 8, hemoglobin 9.5. Sodium 142, potassium 4, bicarbonate 25, BUN 35, creatinine 1.6. Troponin 0.054. Pro natriuretic peptide 1979. Albumin 3.0. IMPRESSION: 1. Paroxysmal atrial fibrillation with rapid ventricular response. 2. Acute on chronic kidney injury. 3. Acute on chronic diastolic congestive heart failure. 4. Mild protein-calorie malnutrition. 5. Fever with possible pneumonia. 6. Asthma with no signs of acute bronchospasm. 7. Acute coronary syndrome. 8. Hypertensive heart disease with labile blood pressure. PLAN: 1. Cardiac monitoring. 2. Consider diltiazem for continued suppression of atrial arrhythmia. 3. Serial troponin. 4. Nasal oxygen. 5. Inhaled bronchodilator as needed. 6. Monitor volume status, cardiorenal parameters. 7. Titrate antihypertensive. 8. Further assessment of coronary flow reserve will be considered. Ford Watkins M.D. DR: LAINA JOB#: [id number] CC:
[2018-05-27] VITALS: BP 136/73
[2018-05-27] MEDS: HYDROcodone/Acetamin 5/325 tab ORAL PRN (03:24)
--- NOTE | 2018-05-27 03:30 | NUR ---
NURSE NOTES: Patient is awake lying semi-charles's complaining of pain. [place] 5/325 PO PRN medication administered as needed. On 3L nasal cannula. Will continue to monitor.
[2018-05-27 04:00] VITALS: BP 130/75
[2018-05-27] MEDS: HydrALAZINE 50mg tab ORAL SCH ×3 (06:10→21:50)
--- NOTE | 2018-05-27 07:15 | NUR ---
HAND-OFF: Report given to RHIANNON Donis. Patient is awake lying semi-charles's; resting comfortably. In stable condition.
--- NOTE | 2018-05-27 07:20 | NUR ---
NURSE NOTES: Received report from Sharona JURADO. Pt is awake, alert, oriented x4, resting in bed in semi-charles's position. Pt reports x1 episode of tightness of lower chest and shortness of breath after using the bedside commode this morning. Was given PRN [place] per hotel night auditor nurse. "Slowly starting to feel better" per pt, on 2L of oxygen via nasal cannula. IV access on left AC #18G, saline lock, patent/intact. Call light is placed within easy reach, bed in lowest position, two side rails up, brakes engaged, alarm on. Bedside commode available. Addendum: 05/27/18 at 1137 by JAVIER PEDRO RN Pt reports x1 episode of slight nosebleed, which stopped after "wiping nose" per pt. RT at bedside adding humidifier to oxygen for added comfort to nasal passages.
[2018-05-27 07:34] LABS: BASOPHILS % (AUTO) 0.7 % (0.0-2.0); EOSINOPHILS % (AUTO) 3.4 % (0.0-3.0); HEMATOCRIT 31.7 % (37.0-47.0); HEMOGLOBIN 10.5 G/DL (12.0-16.0); LYMPHOCYTES % (AUTO) 13.1 % (20.0-45.0); MEAN CORPUSCULAR VOLUME 85 FL (80-99); MONOCYTES % (AUTO) 8.1 % (1.0-10.0); NEUTROPHILS % (AUTO) 74.8 % (45.0-75.0); PLATELET COUNT 223 K/UL (150-450); RED BLOOD COUNT 3.73 M/UL (4.20-5.40); RED CELL DISTRIBUTION WIDTH 13.4 % (11.6-14.8)
[2018-05-27 08:00] VITALS: BP 160/60
--- NOTE | 2018-05-27 08:00 | NUR ---
CASE MANAGEMENT:REVIEW 05/27/2018 SI: AFIB. AMI. AC/CHR HF CRESCENDO ANGINA T 97.6 HR 62 RR 18 B/P 130/75 SATS 97% ON 3L/NC AML PENDING IS: CLONIDINE PO QHS COZAAR PO QHS SYMBICORT INH BID HYDRALAZINE PO BID PREDNISONE PO QD PROTONIX PO QAM IVF@75 mL/HR : TELEMETRY STATUS DCP: PATIENT IS FROM HOME PLAN PER METAL [employer] PIPE MAKER Antiplatelet therapy. Continue statin drug.
[2018-05-27 08:08] LABS: ANION GAP 9 mmol/L (5-15); BLOOD UREA NITROGEN 38 mg/dL (7-18); CALCIUM 10.2 MG/DL (8.5-10.1); CARBON DIOXIDE 25 MMOL/L (21-32); CHLORIDE 107 MMOL/L (98-107); CREATININE 1.5 MG/DL (0.55-1.30); SODIUM 141 MMOL/L (136-145)
--- NOTE | 2018-05-27 08:24 | Nephrology Progress Note ---
Assessment/Plan Assessment/Plan A/P 1) ACS/Chest Pain- with exertion - Myocardial perfusion scan for assessment of coronary flow reserve on Monday - appreciate cardiology adjustment of medications 2) HTN- antiHTN added yesterday. Continue to adjust 3) Hypothyroid- synthroid 4) Asthma- inhalers 5) AFib- cardizem 6) RADHA on CKD 3A- Cr stable at 1.5 Subjective Date patient seen: May 27, 2018 Time patient seen: 08:18 ROS Limited/Unobtainable: No Allergies: Coded Allergies: PENICILLINS (Verified Allergy, Unknown, 05/23/18) Subjective PAtient resting, CP with exertion. Stable Objective Last 24 Hour Vital Signs Date Time Temp Pulse Resp B/P (MAP) Pulse Ox O2 Delivery O2 Flow Rate FiO2 05/27/18 06:10 130/75 05/27/18 04:00 61 05/27/18 04:00 97.6 62 18 130/75 (93) 97 05/27/18 00:00 98.0 61 19 136/73 (94) 97 05/27/18 00:00 67 05/26/18 21:00 Nasal Cannula 3.0 Nasal Cannula 3.0 05/26/18 20:44 82 164/74 05/26/18 20:41 164/74 05/26/18 20:41 164/74 05/26/18 20:00 97.9 82 20 164/74 (104) 95 05/26/18 20:00 78 05/26/18 19:30 95 Nasal Cannula 2.0 28 05/26/18 19:30 Nasal Cannula 2.0 28 05/26/18 19:29 72 18 95 Nasal Cannula 2.0 28 05/26/18 19:29 72 18 Nasal Cannula 2.0 28 05/26/18 19:25 72 18 95 Nasal Cannula 2.0 28 05/26/18 16:25 190/79 05/26/18 16:00 73 05/26/18 16:00 97.0 67 20 180/75 (110) 96 05/26/18 12:00 97.0 65 22 145/87 (106) 98 05/26/18 12:00 65 05/26/18 09:00 Nasal Cannula 3.0 Nasal Cannula 3.0 05/26/18 08:56 147/60 05/26/18 08:53 79 18 97 Nasal Cannula 2.0 28 05/26/18 08:53 79 18 97 Nasal Cannula 2.0 28 Intake and Output 05/26/18 05/27/18 19:00 07:00 Intake Total 500 ml 800 ml Output Total 2000 ml Balance 500 ml -1200 ml Intake Oral 500 ml 480 ml IV Total 200 ml Other 120 ml Output Urine Total 2000 ml # Voids 2 4 # Bowel Movements 1 Laboratory Tests 05/26/18 17:15: White Blood Count 6.2, Red Blood Count 3.82L, Hemoglobin 10.8#L, Hematocrit 33.1 #L, Mean Corpuscular Volume 87, Mean Corpuscular Hemoglobin 28.3, Mean Corpuscular Hemoglobin Concent 32.6, Red Cell Distribution Width 13.5, Platelet Count 217, Mean Platelet Volume 5.2L, Neutrophils (%) (Auto) , Lymphocytes (%) ( Auto) , Monocytes (%) (Auto) , Eosinophils (%) (Auto) , Basophils (%) (Auto) 05/26/18 17:25: Sodium Level 139, Potassium Level 4.2, Chloride Level 106, Carbon Dioxide Level 23, Anion Gap 10, Blood Urea Nitrogen 31H, Creatinine 1.5H, Estimat Glomerular Filtration Rate , Glucose Level 122H, Calcium Level 10.2H, Magnesium Level 1.6L , Total Bilirubin 0.3, Aspartate Amino Transf (AST/SGOT) 17, Alanine Aminotransferase (ALT/SGPT) 20, Alkaline Phosphatase 90, Pro-B-Type Natriuretic Peptide 1520H, Total Protein 6.5, Albumin 2.6L, Globulin 3.9, Albumin/Globulin Ratio 0.7L 05/27/18 05:25: White Blood Count 6.0, Red Blood Count 3.73L, Hemoglobin 10.5L, Hematocrit 31.7L , Mean Corpuscular Volume 85, Mean Corpuscular Hemoglobin 28.3, Mean Corpuscular Hemoglobin Concent 33.2, Red Cell Distribution Width 13.4, Platelet Count 223, Mean Platelet Volume 5.6L, Neutrophils (%) (Auto) 74.8, Lymphocytes ( %) (Auto) 13.1L, Monocytes (%) (Auto) 8.1, Eosinophils (%) (Auto) 3.4H, Basophils (%) (Auto) 0.7, Sodium Level 141, Potassium Level 4.0, Chloride Level 107, Carbon Dioxide Level 25, Anion Gap 9, Blood Urea Nitrogen 38H, Creatinine 1.5H, Estimat Glomerular Filtration Rate , Glucose Level 86, Calcium Level 10.2H Height (Feet): 5 Height (Inches): 3.00 Weight (Pounds): 150 General Appearance: no apparent distress, alert EENT: normal ENT inspection Neck: non-tender, supple Cardiovascular: normal rate, regular rhythm Respiratory/Chest: lungs clear, normal breath sounds Abdomen: non tender, soft Edema: no edema noted Arm (L), no edema noted Arm (R), no edema noted Leg (L), no edema noted Leg (R), no edema noted Pedal (L), no edema noted Pedal (R), no edema noted Generalized Sarabjit Roberts MD May 27, 2018 08:24
[2018-05-27] MEDS: dilTIAZem HCl CD 180mg cap ORAL SCH (08:41)
[2018-05-27] MEDS ORDERED: Tubing IV Secondary IV ONE (10:43)
[2018-05-27 12:00] VITALS: BP 168/66
[2018-05-27 16:00] VITALS: BP 153/61
--- NOTE | 2018-05-27 19:31 | NUR ---
HAND-OFF: Report given to Sharona JURADO. Pt is resting in bed in stable condition. Endorsed plan of care.
--- NOTE | 2018-05-27 19:39 | NUR ---
NURSE NOTES: Received report from RHIANNON Donis. Patient is awake lying semi-charles's; resting comfortably. No signs of acute distress noted; denies pain at this time. On 2L nasal cannula. AOx4; able to make needs known. Ambulates to the bedside commode with assistance. Checked IV site; patent and flushed. No erythema, bleeding, or infiltration noted. Bedside commode easily accessible. Bed at lowest position, brakes on, siderails up x3. Call light within reach. Will continue to monitor.
[2018-05-27 20:00] VITALS: BP 156/67
[2018-05-27] MEDS: Losartan 50mg tab ORAL SCH (20:40)
[2018-05-27] MEDS: Atorvastatin 20mg tab ORAL SCH (20:40)
[2018-05-28] VITALS (7 sets, daily range): BP systolic 133–166; BP diastolic 58–77
[2018-05-28] MEDS: Albuterol 90mcg Inhaler 8gm INH PRN (00:55)
--- NOTE | 2018-05-28 03:21 | NUR ---
NURSE NOTES: Patient is asleep lying semi-charles's; resting comfortably. No signs of acute distress or pain noted at this time. On 2L nasal cannula.
--- NOTE | 2018-05-28 04:30 | Progress Note ---
DATE: 05/27/2018 CARDIOLOGY PROGRESS NOTE SUBJECTIVE: No new complaints, short of breath with activity. OBJECTIVE: VITAL SIGNS: Blood pressure 130/75, pulse 61, and respiratory rate 18. Sinus rhythm. LUNGS: Diminished breath sounds. No wheezing. HEART: Regular rhythm and rate. Normal S1 and S2. ABDOMEN: Soft. EXTREMITIES: Trace edema. IMPRESSION: 1. Acute myocardial ischemia. 2. Acute on chronic diastolic congestive heart failure. 3. Accelerated hypertension. 4. Paroxysmal atrial fibrillation. 5. Acute on chronic kidney injury. PLAN: 1. Optimize blood pressure parameters. 2. Anti-platelet therapy. 3. Diuresis. 4. Recheck electrolytes including magnesium. 5. Myocardial perfusion scan planned. Ford Watkins M.D. DR: RIMMA JOB#: [id number] CC:
[2018-05-28] MEDS: HydrALAZINE 50mg tab ORAL SCH ×3 (05:34→21:16)
--- NOTE | 2018-05-28 07:20 | NUR ---
NURSE NOTES: Received report from RHIANNON Tabor. Pt is sitting up in bed. Bed is in lowest position, side rails X4, call light is within reach. Will continue to monitor.
[2018-05-28 07:22] LABS: ANION GAP 7 mmol/L (5-15); BLOOD UREA NITROGEN 37 mg/dL (7-18); CALCIUM 10.2 MG/DL (8.5-10.1); CARBON DIOXIDE 27 MMOL/L (21-32); CHLORIDE 107 MMOL/L (98-107); CREATININE 1.4 MG/DL (0.55-1.30); SODIUM 141 MMOL/L (136-145)
--- NOTE | 2018-05-28 07:29 | NUR ---
HAND-OFF: Report given to RHIANNON Erickson. Patient is asleep lying semi-charles's; resting comfortably. On 2L nasal cannula. In stable condition. Endorsed to oncoming RN regarding patient's stress test procedure later today; verbalized understanding.
[2018-05-28] MEDS: dilTIAZem HCl CD 180mg cap ORAL SCH ×2 (08:50→19:50)
--- NOTE | 2018-05-28 09:43 | Pulmonology Progress Note ---
Assessment/Plan Assessment/Plan IMPRESSION: 1) ACS/Chest Pain- with exertion - Myocardial perfusion scan for assessment of coronary flow reserve today - appreciate cardiology adjustment of medications 2) HTN- antiHTN added yesterday. Continue to adjust 3) Hypothyroid- synthroid 4) Asthma- inhalers 5) AFib- cardizem 6) RADHA on CKD 3A- Cr stable at 1.51. Left inframammary chest pain, concern high for coronary syndrome. Jim Peoples M.D. Subjective Interval Events: Re[ports minimal chest pressure Constitutional: Reports: no symptoms HEENT: Repors: no symptoms Respiratory: Reports: no symptoms Cardiovascular: Reports: no symptoms Gastrointestinal/Abdominal: Reports: no symptoms Genitourinary: Reports: no symptoms Allergies: Coded Allergies: PENICILLINS (Verified Allergy, Unknown, 05/23/18) Objective Last 24 Hour Vital Signs Date Time Temp Pulse Resp B/P (MAP) Pulse Ox O2 Delivery O2 Flow Rate FiO2 05/28/18 08:50 89 133/58 05/28/18 08:20 Nasal Cannula 2.0 28 05/28/18 08:20 96 Nasal Cannula 2.0 28 05/28/18 08:19 89 18 97 Nasal Cannula 2.0 28 05/28/18 08:16 85 18 96 Nasal Cannula 2.0 28 05/28/18 08:00 97.3 76 16 133/58 (83) 97 05/28/18 05:34 155/68 05/28/18 04:00 97.2 58 16 155/68 (97) 92 05/28/18 04:00 69 05/28/18 00:00 62 05/28/18 00:00 96.6 55 17 139/70 (93) 96 05/27/18 21:50 156/67 05/27/18 21:00 Nasal Cannula 2.0 05/27/18 20:40 156/67 05/27/18 20:40 156/67 05/27/18 20:00 65 05/27/18 20:00 97.8 66 16 156/67 (96) 96 05/27/18 19:35 91 18 96 Nasal Cannula 2.0 28 05/27/18 19:33 91 18 95 Nasal Cannula 2.0 28 05/27/18 19:32 Nasal Cannula 2.0 28 05/27/18 19:32 95 Nasal Cannula 2.0 28 05/27/18 16:00 64 05/27/18 16:00 98.4 70 20 153/61 (91) 97 05/27/18 15:04 168/66 05/27/18 12:00 71 05/27/18 12:00 97.7 75 21 168/66 (100) 96 Intake and Output 05/27/18 05/28/18 19:00 07:00 Intake Total 780 ml 350 ml Balance 780 ml 350 ml Intake Oral 780 ml 350 ml # Voids 3 4 # Bowel Movements 1 General Appearance: no acute distress HEENT: normocephalic Respiratory/Chest: chest wall non-tender, lungs clear Cardiovascular: normal peripheral pulses, normal rate Abdomen: normal bowel sounds Laboratory Tests 05/28/18 06:10: Sodium Level 141, Potassium Level 4.0, Chloride Level 107, Carbon Dioxide Level 27, Anion Gap 7, Blood Urea Nitrogen 37H, Creatinine 1.4H, Estimat Glomerular Filtration Rate , Glucose Level 93, Calcium Level 10.2H Current Medications Medications (Trade) Dose Ordered Sig/Damari Route PRN Reason Start Time Stop Time Status Last Admin Dose Admin Acetaminophen (Tylenol) 650 mg Q6H PRN ORAL Mild Pain/Temp > 100.5 05/24/18 04:15 06/23/18 04:14 05/26/18 01:46 Acetaminophen/ Hydrocodone Bitart ([place] 5/325) 1 tab Q6H PRN ORAL For Pain 05/26/18 06:45 06/02/18 06:44 05/27/18 03:24 Albuterol Sulfate (Proventil MDI) 2 puff Q12H PRN INH Shortness of Breath 05/24/18 09:45 06/23/18 09:44 05/28/18 00:55 Atorvastatin Calcium (Lipitor) 20 mg BEDTIME ORAL 05/24/18 21:00 06/23/18 20:59 05/27/18 20:40 Budesonide/ Formoterol Fumarate (Symbicort 160/ 4.5) 2 puff TWICE A DAY INH 05/24/18 18:00 06/23/18 17:59 05/28/18 08:16 Cetirizine HCl (ZyrTEC) 10 mg DAILY ORAL 05/24/18 09:00 06/23/18 08:59 05/28/18 08:49 Clonidine HCl (Catapres Tab) 0.1 mg Q4H PRN ORAL sbp>150 05/24/18 08:45 06/23/18 08:44 05/24/18 10:32 Clonidine HCl (Catapres Tab) 0.1 mg QHS ORAL 05/26/18 21:00 06/25/18 20:59 05/27/18 20:40 Diltiazem HCl (Cardizem CD) 180 mg DAILY ORAL 05/26/18 20:45 06/25/18 20:44 05/27/18 08:41 Hydralazine HCl (Apresoline) 100 mg Q8HR ORAL 05/27/18 06:00 06/26/18 05:59 05/28/18 05:34 Levothyroxine Sodium (Synthroid) 88 mcg DAILY@0630 ORAL 05/24/18 06:30 06/23/18 06:29 05/28/18 05:34 Losartan Potassium (Cozaar) 100 mg QHS ORAL 05/24/18 21:00 06/23/18 20:59 05/27/18 20:40 Pantoprazole (Protonix) 40 mg ACBREAKFAST ORAL 05/24/18 06:30 06/23/18 06:29 05/28/18 05:34 Prednisone (predniSONE) 5 mg DAILY ORAL 05/24/18 09:00 06/23/18 08:59 05/28/18 08:50 Regadenoson (Lexiscan) 0.4 mg ONCE PRN IV stress test 05/28/18 11:00 05/30/18 10:59 Jim Peoples MD May 28, 2018 09:43
[2018-05-28] MEDS ORDERED: Lexiscan 0.4mg/5ml syringe IV PRN (11:00)
--- NOTE | 2018-05-28 15:55 | Diagnostic Imaging Report ---
Indications: Chest pain Technique: See cardiology report for details of LexiScan stress testing. During LexiScan infusion, IV administration 81.8 mCi 99 M technetium Myoview. SPECT and planar images obtained. SPECT images gated to 8 phases of the cardiac cycle were also obtained, and reformatted into cine images for evaluation of ejection fraction. On the subsequent day, resting images obtained using IV administration 10.3 mCi 99 M technetium Myoview. Comparison:none Findings: Clinical response to pharmacologic stress was documented as ischemic. The echocardiographic response to pharmacologic stress was documented as nonischemic. No reversible defect is identified to suggest ischemia. No fixed defect is identified to suggest infarct. Wall motion appears preserved. Ejection fraction estimated at 63%. IMPRESSION: * No fixed or reversible perfusion defect. * Ejection fraction estimated at 63%.
--- NOTE | 2018-05-28 16:07 | NUR ---
*-* INSURANCE UPDATED CLINICALS AND REVIEW HAVE BEEN FAXED TO: [facility] [place]:[facility] F:[phone]
--- NOTE | 2018-05-28 19:47 | NUR ---
HAND-OFF: Report given to Jose Stout. Plan of care endorsed
--- NOTE | 2018-05-28 19:48 | NUR ---
NURSE NOTES: Received pt from MAY Erickson. Pt awake, alert, and talkative. Bed in lowest position. Call light within reach. Will continue to monitor.
[2018-05-28] MEDS: Losartan 50mg tab ORAL SCH (21:15)
[2018-05-28] MEDS: Atorvastatin 20mg tab ORAL SCH (21:16)
--- NOTE | 2018-05-28 22:41 | Diagnostic Imaging Report ---
APPROVED REPORT CPT Code: 46251 Present Symptoms Comments: BILATERAL LEGS PAIN. BILATERAL: Imaging reveals a patent deep venous system bilaterally. There is no evidence of thrombus within the femoral, popliteal or tibial segments. The greater saphenous veins are also within normal limits. Doppler indicates normal spontaneous flow within these segments.
[2018-05-29] VITALS: BP 134/80
--- NOTE | 2018-05-29 03:45 | Progress Note ---
DATE: 05/28/2018 CARDIOLOGY PROGRESS NOTE SUBJECTIVE: The patient had a myocardial perfusion scan today with dobutamine stress. This study revealed no signs of perfusion defects and ejection fraction was normal. This was discussed with the patient and her daughter at bedside. The patient continues to have shortness of breath with activity. OBJECTIVE: VITAL SIGNS: Blood pressure 133/58 to 155/68, heart rate 76, respiratory rate 16, she is afebrile, and oxygen saturation on two liters is 96%. LUNGS: Clear. CARDIAC: Regular. Normal S1, S2. ABDOMEN: Soft. EXTREMITIES: No edema. LABORATORY DATA: BUN 37, creatinine 1.4. IMPRESSION: 1. No evidence of flow-limiting coronary artery disease. 2. Dyspnea is likely multifactorial due to pulmonary hypertension, asthma, and deconditioning. Other consideration will be chronic pulmonary emboli, although the patient reportedly had a negative CT angiogram at an outside emergency room prior to admission here. 3. Paroxysmal atrial fibrillation with no recurrence seen. PLAN AND RECOMMENDATIONS: 1. Obtain venous duplex of the legs. 2. Consider repeat CT angiogram or V/Q scan of the chest. 3. Maximize anti-failure and antihypertensive regimen. 4. Consider pulmonary function studies. Ford Watkins M.D. DR: FRANCO JOB#: [id number] CC:
[2018-05-29 04:00] VITALS: BP 147/57
[2018-05-29] MEDS: HydrALAZINE 50mg tab ORAL SCH ×2 (05:19→13:39)
--- NOTE | 2018-05-29 07:10 | NUR ---
HAND-OFF: Report given to RHIANNON Erickson. Pt stable.
[2018-05-29 07:23] LABS: ALANINE AMINOTRANSFERASE 18 U/L (12-78); ALBUMIN 2.5 G/DL (3.4-5.0); ALBUMIN/GLOBULIN RATIO 0.7 (1.0-2.7); ALKALINE PHOSPHATASE 81 U/L (46-116); ANION GAP 8 mmol/L (5-15); ASPARTATE AMINO TRANSFERASE 16 U/L (15-37); BILIRUBIN,TOTAL 0.3 MG/DL (0.2-1.0); BLOOD UREA NITROGEN 47 mg/dL (7-18); CALCIUM 11.1 MG/DL (8.5-10.1); CARBON DIOXIDE 27 MMOL/L (21-32); CHLORIDE 107 MMOL/L (98-107); CREATININE 1.5 MG/DL (0.55-1.30); POTASSIUM 4.1 MMOL/L (3.5-5.1); SODIUM 142 MMOL/L (136-145)
[2018-05-29 07:25] LABS: BASOPHILS % (AUTO) 0.8 % (0.0-2.0); EOSINOPHILS % (AUTO) 3.4 % (0.0-3.0); HEMATOCRIT 31.8 % (37.0-47.0); HEMOGLOBIN 10.5 G/DL (12.0-16.0); LYMPHOCYTES % (AUTO) 13.9 % (20.0-45.0); MEAN CORPUSCULAR VOLUME 86 FL (80-99); NEUTROPHILS % (AUTO) 73.9 % (45.0-75.0); PLATELET COUNT 217 K/UL (150-450); RED CELL DISTRIBUTION WIDTH 13.8 % (11.6-14.8); WHITE BLOOD COUNT 6.4 K/UL (4.8-10.8)
--- NOTE | 2018-05-29 07:30 | NUR ---
NURSE NOTES: Received report from RHIANNON Stout. Pt is sleeping in bed with no distress noted. Bed is in lowest position, side rails up X2, and call light is within reach. Will continue to monitor.
[2018-05-29 08:00] VITALS: BP 140/58
[2018-05-29] MEDS: dilTIAZem HCl CD 180mg cap ORAL SCH ×2 (09:27→17:18)
--- NOTE | 2018-05-29 09:57 | Pulmonology Progress Note ---
Assessment/Plan Assessment/Plan IMPRESSION: 1) ACS/Chest Pain- with exertion - Myocardial perfusion scan for assessment of coronary flow reserve done... normal - appreciate cardiology adjustment of medications 2) HTN- antiHTN added yesterday. Continue to adjust 3) Hypothyroid- synthroid 4) Asthma- inhalers 5) AFib- cardizem 6) RADHA on CKD 3A- Cr stable at 1.51. Left inframammary chest pain, concern high for coronary syndrome. 7) Pulm HTN Jim Peoples M.D. Subjective Interval Events: None new Constitutional: Reports: no symptoms HEENT: Repors: no symptoms Respiratory: Reports: no symptoms Cardiovascular: Reports: no symptoms Gastrointestinal/Abdominal: Reports: no symptoms Genitourinary: Reports: no symptoms Allergies: Coded Allergies: PENICILLINS (Verified Allergy, Unknown, 05/23/18) Objective Last 24 Hour Vital Signs Date Time Temp Pulse Resp B/P (MAP) Pulse Ox O2 Delivery O2 Flow Rate FiO2 05/29/18 09:50 97 Nasal Cannula 2.0 28 05/29/18 09:50 70 20 97 Nasal Cannula 2.0 28 05/29/18 09:50 68 20 98 Nasal Cannula 2.0 28 05/29/18 09:50 Nasal Cannula 2.0 28 05/29/18 09:27 66 140/58 05/29/18 08:00 97.7 66 18 140/58 (85) 98 05/29/18 05:19 147/57 05/29/18 04:00 60 05/29/18 04:00 97.3 62 18 147/57 (87) 97 05/29/18 00:00 67 05/29/18 00:00 98.3 69 18 134/80 (98) 97 05/28/18 21:16 166/77 05/28/18 21:16 166/77 05/28/18 21:15 166/77 05/28/18 21:15 73 166/77 (106) 05/28/18 21:00 Nasal Cannula 3.0 Nasal Cannula 2.0 05/28/18 20:00 98.0 83 19 156/74 (101) 97 05/28/18 19:54 89 20 96 Nasal Cannula 2.0 28 05/28/18 19:52 89 20 96 Nasal Cannula 2.0 28 05/28/18 19:51 96 Nasal Cannula 2.0 28 05/28/18 19:51 Nasal Cannula 2.0 28 05/28/18 19:50 83 156/74 05/28/18 16:00 73 05/28/18 16:00 98.5 85 20 141/67 (91) 96 05/28/18 15:29 166/75 05/28/18 12:00 98.4 73 20 156/63 (94) 96 Intake and Output 05/28/18 05/29/18 19:00 07:00 Output Total 500 ml Balance -500 ml Output Urine Total 500 ml General Appearance: no acute distress HEENT: normocephalic Respiratory/Chest: chest wall non-tender, lungs clear Cardiovascular: normal peripheral pulses, normal rate Abdomen: normal bowel sounds Laboratory Tests 05/29/18 05:48: White Blood Count 6.4, Red Blood Count 3.70L, Hemoglobin 10.5L, Hematocrit 31.8L , Mean Corpuscular Volume 86, Mean Corpuscular Hemoglobin 28.4, Mean Corpuscular Hemoglobin Concent 33.1, Red Cell Distribution Width 13.8, Platelet Count 217, Mean Platelet Volume 5.6L, Neutrophils (%) (Auto) 73.9, Lymphocytes ( %) (Auto) 13.9L, Monocytes (%) (Auto) 8.0, Eosinophils (%) (Auto) 3.4H, Basophils (%) (Auto) 0.8, Sodium Level 142, Potassium Level 4.1, Chloride Level 107, Carbon Dioxide Level 27, Anion Gap 8, Blood Urea Nitrogen 47H, Creatinine 1.5H, Estimat Glomerular Filtration Rate , Glucose Level 98, Calcium Level 11.1H , Magnesium Level 1.6L, Total Bilirubin 0.3, Aspartate Amino Transf (AST/SGOT) 16, Alanine Aminotransferase (ALT/SGPT) 18, Alkaline Phosphatase 81, Pro-B-Type Natriuretic Peptide 739H, Total Protein 6.0L, Albumin 2.5L, Globulin 3.5, Albumin/Globulin Ratio 0.7L Current Medications Medications (Trade) Dose Ordered Sig/Damari Route PRN Reason Start Time Stop Time Status Last Admin Dose Admin Acetaminophen (Tylenol) 650 mg Q6H PRN ORAL Mild Pain/Temp > 100.5 05/24/18 04:15 06/23/18 04:14 05/28/18 12:56 Acetaminophen/ Hydrocodone Bitart ([place] 5/325) 1 tab Q6H PRN ORAL For Pain 05/26/18 06:45 06/02/18 06:44 05/27/18 03:24 Albuterol Sulfate (Proventil MDI) 2 puff Q12H PRN INH Shortness of Breath 05/24/18 09:45 06/23/18 09:44 05/28/18 00:55 Atorvastatin Calcium (Lipitor) 20 mg BEDTIME ORAL 05/24/18 21:00 06/23/18 20:59 05/28/18 21:16 Budesonide/ Formoterol Fumarate (Symbicort 160/ 4.5) 2 puff TWICE A DAY INH 05/24/18 18:00 06/23/18 17:59 05/29/18 09:50 Cetirizine HCl (ZyrTEC) 10 mg DAILY ORAL 05/24/18 09:00 06/23/18 08:59 05/29/18 09:27 Clonidine HCl (Catapres Tab) 0.1 mg Q4H PRN ORAL sbp>150 05/24/18 08:45 06/23/18 08:44 05/24/18 10:32 Clonidine HCl (Catapres Tab) 0.1 mg QHS ORAL 05/26/18 21:00 06/25/18 20:59 05/28/18 21:16 Diltiazem HCl (Cardizem CD) 180 mg BID ORAL 05/28/18 18:00 06/27/18 17:59 05/29/18 09:27 Hydralazine HCl (Apresoline) 100 mg Q8HR ORAL 05/27/18 06:00 06/26/18 05:59 05/29/18 05:19 Levothyroxine Sodium (Synthroid) 88 mcg DAILY@0630 ORAL 05/24/18 06:30 06/23/18 06:29 05/29/18 05:18 Losartan Potassium (Cozaar) 100 mg QHS ORAL 05/24/18 21:00 06/23/18 20:59 05/28/18 21:15 Pantoprazole (Protonix) 40 mg ACBREAKFAST ORAL 05/24/18 06:30 06/23/18 06:29 05/29/18 05:19 Prednisone (predniSONE) 5 mg DAILY ORAL 05/24/18 09:00 06/23/18 08:59 05/29/18 09:27 Regadenoson (Lexiscan) 0.4 mg ONCE PRN IV stress test 05/28/18 11:00 05/30/18 10:59 Jim Peoples MD May 29, 2018 09:57
[2018-05-29] MEDS ORDERED: COZAAR50 MG ORAL (10:02)
[2018-05-29] MEDS ORDERED: APRESOLINE50 MG ORAL (10:02)
[2018-05-29] MEDS ORDERED: NORCO 5-325 TA1 EACH ORAL (10:02)
[2018-05-29] MEDS ORDERED: ALBUTEROL SULF8.5 GM INH (10:02)
[2018-05-29] MEDS ORDERED: LIPITOR20 MG ORAL (10:02)
[2018-05-29] MEDS ORDERED: SYNTHROID88 MCG ORAL (10:02)
[2018-05-29] MEDS ORDERED: SYMBICORT 1601 PUFFS INH (10:02)
--- NOTE | 2018-05-29 10:28 | NUR ---
*-* DISCHARGE PLANNING *-* PATIENT HAS BEEN REFERRED TO: [facility] P:[phone] F:[phone] & [facility] P:[phone] F:[phone] Addendum: 05/29/18 at 1414 by SHIRLENE MENDOZA CM SPOKE TO DEVONTE AT [facility] AND THEY WILL BE FOLLOWING PATIENT ONCE DISCHARGE. DEVONTE STATED HE WILL ALSO GET AN AUTH. P:[phone] F:[phone]
--- NOTE | 2018-05-29 10:43 | NUR ---
Social Service Note ARJUN spoke with patient and patient's dgt Grace Kaplan on the phone in patient's room. ARJUN informed patient of dc plan for today. Patient doesn't want SNF placement and is requesting to return home. Per dgt patient's son will meat pickler patient after work to transport home after 5pm. Patient doesn't want prescriptions filled prior to to discharge. quality coordinator arranging home health follow up.
--- NOTE | 2018-05-29 10:55 | NUR ---
REHAB MED PT NOTE CONSULT RECEIVED, TRINA SEYMOURLTED, PATIENT WILL BENEFIT FROM SKILLED PT DURING STAY FOR RETURN TO [facility]. RECOMMEND HOME VS SNF. PLAN OF CARE INITIATED. OLIVER CABRERA PT DPT Addendum: 05/29/18 at 1056 by OLIVER CABRERA PT Amended: Links added.
--- NOTE | 2018-05-29 11:39 | NUR ---
*-* DISCHARGE PLANNING *-* PATIENT HAS BEEN REFERRED TO: [facility] P:[phone] F:[phone] Addendum: 05/30/18 at 1038 by SHIRLENE MENDOZA CLAYTON WITH [facility] IS ABLE TO FOLLOW PATIENT UNTIL MONDAY.
[2018-05-29 12:00] VITALS: BP_SYST 137; BP_SYST 140; BP_DIAS 58; BP_DIAS 61
[2018-05-29 16:00] VITALS: BP 127/72
[2018-05-29 17:18] VITALS: BP 127/72
--- NOTE | 2018-05-29 18:43 | NUR ---
NURSE NOTES: Pt discharged per MD orders. Heart monitor removed and returned to tech. IV removed. No swelling or redness noted. Pt. is stable. Signed belongings list is in chart along with signed photo copies of prescription. Pt stable at time of discharge. Pt accompanied by son.
--- NOTE | 2018-05-29 20:30 | Progress Note ---
DATE: 05/29/2018 CARDIOLOGY PROGRESS NOTE SUBJECTIVE: The patient has no chest pain at rest. She still gets short of breath with activity. The case was discussed with Dr. Peoples. The patient was made aware that pulmonary hypertension due to asthma and deconditioning are likely etiologies. The patient had a myocardial perfusion scan yesterday that revealed low likelihood for flow-limiting coronary disease. OBJECTIVE: VITAL SIGNS: Blood pressure 140/58, pulse 66, respiratory rate 18. LUNGS: Clear. CARDIAC: Regular. Normal S1 and S2. ABDOMEN: Soft. No edema. IMPRESSION: The patient's clinical condition is stable for lower level of care to begin rehabilitation. The patient does not have any diagnostic evidence for flow-limiting coronary artery disease. The patient may have microvascular disease. The patient's hypertension is much better controlled. The patient's diastolic dysfunction with acute congestive heart failure is mostly compensated. The patient's pulmonary hypertension is likely due to her longstanding asthma and will continued to be a concern long-term. The patient's paroxysmal atrial fibrillation has not recurred and at this time risk to benefit ratio for anticoagulation remains high. Should there be any change in her condition in the future this will be readdressed. Ford Watkins M.D. DR: Long JOB#: [id number] CC:
--- NOTE | 2018-05-30 10:38 | NUR ---
*-* DISCHARGE PLANNING *-* PATIENT CLINICALS HAVE BEEN SENT TO: [facility] F:[phone] [facility] STATED THAT SHE IS ABLE TO HELP FINDING THE PATIENT A HOME HEALTH THAT CAN FOLLOW.
--- NOTE | 2018-05-30 13:11 | Discharge Summary ---
Discharge Summary Discharge Summary _ DATE OF ADMISSION: 05/23/2018 DATE OF DISCHARGE: 05/29/2018 DISCHARGED BY: Dr. Peoples REASON FOR ADMISSION: 83 years old female with past medical history of hypertension, asthma, hyperlipidemia, arthritis, renal insufficiency, corneal transplant, previous back surgery, presented to emergency department due to chest pain and dyspnea. Patient was evaluated prior to another facility with a complete workup including CT of the chest, which was negative for pulmonary emboli . Chest X ray was negative as well. Patient subsequently saw her primary printing sales representative , Documentation stated that nuclear stress test was normal, and patient had nonexertional chest pain. Patient had been on steroids for arthritis and has a long standing history of asthma. Upon evaluation in ED, vital signs revealed fever 102.4 ,patient was tachycardic , and blood pressure was 185/86. Pulse oximetry was 99% on oxygen via nasal cannula. Laboratory workup revealed no leukocytosis, hemoglobin 9.5 ,hematocrit 30.4 , BUN 36 , creatinine 1.6 . Lactic acid 1.3 . Troponin negative. EKG revealed atrial fibrillation with rapid ventricular response. Cardizem was given , and patient spontaneously converted to sinus rhythm, left ventricular hypertrophy was noted and nonspecific ST-T wave changes. Pro BNP 1979 Urinalysis revealed no evidence of UTI , +3 protein. Chest x-ray revealed no acute cardiopulmonary pathology . Patient was admitted for further management . CONSULTANTS: printing sales representative dehydration unit operator Dr.De Johnson [facility] COURSE: Patient admitted to telemetry floor . Cardiology and dehydration unit operator followed. Serial troponin were trended, second troponin with minimal elevation -0.065, and the last wo negative. EKG revealed no acute ischemic changes. Per printing sales representative , patient had acute myocardial ischemia, likely precipitated by atrial fibrillation with rapid ventricular response. Supplemental oxygen provided as needed to keep oximetry above 92%. Patient was provided with hand held nebulizing treatment with bronchodilator on as needed basis. Advair was continued. Antihypertensive regimen was titrated to keep blood pressure under control with multiple medications, Blood pressure stabilized. Diltiazem started for continued suppression of atrial arrhythmia. Antiplatelet therapy was continued Echocardiogram revealed preserved ejection fraction of 55 %, left ventricular hypertrophy. No evidence of wall motion abnormality. Moderate tricuspid regurgitation. Right ventricular systolic pressure of 77, consistent with severe pulmonary hypertension Assessment of coronary flow reserve was done with myocardial perfusion scan test , which was nonischemic and showed ejection fraction of 63%. Antianginal , anti-failure and antihypertensive regimen were optimized by printing sales representative. Diuresis was provided based on clinical parameters. Volume status and cardiorenal parameters were closely monitored. Pro BNPtrended down to 739 . Venous duplex bilateral lower extremity revealed no evidence of acute DVT. Per printing sales representative , dyspnea was likely multifactorial due to pulmonary hypertension, asthma and deconditioning. Lipid panel was stable. Patient initially received antibiotic for possible pneumonia, No leukocytosis, fever resolved in 1 day. Blood cultures were negative. No clinical evidence of pneumonia. Antibiotics stopped. Dedicated Local Truck Driver closely followed . Renal parameters and electrolytes were closely monitored, electrolytes corrected as needed , nephrotoxins were avoided. Creatinine from 1.7 down to 1.5. Hemoglobin and hematocrit were closely monitored with goal to keep hemoglobin above 7. Patient undergone transfusion with 2 unit of packed red blood cells. Prior to discharge hemoglobin 10.5 hematocrit 31.8. Synthroid continued for hypothyroidism. Pain management was addressed as needed. Nutritional recommendation implemented and plan of care. Supportive care provided. Bowel regimen instituted. Patient clinically stabilized and was ready for transfer home with home health services. FINAL DIAGNOSES: Paroxysmal atrial fibrillation with rapid ventricular response- no recurrence Acute myocardial ischemia , precipitated by atrial fibrillation with rapid ventricular response- resolved Crescendo angina History of asthma Hypomagnesemia-resolved Acute on chronic diastolic congestive heart failure Acute kidney injury on chronic kidney disease stage III A Severe protein calorie malnutrition Hypertensive heart disease with hypertensive urgency Anemia Degenerative valve disease Severe pulmonary hypertension Hypothyroidism DISCHARGE MEDICATIONS: See Medication Reconciliation list. DISCHARGE INSTRUCTIONS: Patient was discharged home with home health services. Follow up with primary care provider in one week. I have been assigned to dictate discharge summary for this account. I was not involved in the patient's management. Claire Call NP May 30, 2018 13:11
--- NOTE | 2018-06-07 14:32 | Cardiology Report ---
APPROVED REPORT EKG Measurement Heart [id number] Normal sinus rhythm Voltage criteria for left ventricular hypertrophy Possible Inferior infarct, age undetermined Abnormal ECG
--- NOTE | 2018-06-08 09:11 | Cardiology Report ---
APPROVED REPORT EXAM: Two-dimensional and M-mode echocardiogram with Doppler and color Doppler. INDICATION Arrhythmia M-Mode DIMENSIONS IVSd1.3 (0.7-1.1cm)Left Atrium (MM)3.3 (1.6-4.0cm) LVDd6.4 (3.5-5.6cm)Aortic Root3.0 (2.0-3.7cm) PWd0.9 (0.7-1.1cm)Aortic Cusp Exc.1.7 (1.5-2.0cm) IVSs1.5 cm LVDs4.9 (2.5-4.0cm) PWs1.2 cm Normal left ventricular chamber size, systolic function and wall motion . Left ventricular ejection fraction estimated to be 55-60%. Mild left ventricular hypertrophy by 2-D. Trivial pericardial effusion. Mild left atrial enlargement . Right cardiac chamber sizes are within normal limits. Focal aortic valve sclerosis with normal cusp excursion. Moderately thickened mitral valve leaflets with normal excursion. Moderately mitral annulus and aortic root calcification. Normal pulmonic valve structure. Normal tricuspid valve structure. IVC at normal size with physiologic collapse. A color flow and spectral Doppler study was performed and revealed: Mild aortic insufficiency . Mild mitral regurgitation. Mitral diastolic velocities suggest reduced left ventricular relaxation c/w mild LV diastolic dysfunction (Grade I ). Moderate tricuspid regurgitation. Tricuspid systolic velocities suggests peak right ventricular systolic pressure of 77mmHg,consistent with severe pulmonary hypertension.
== END 2018-05-29 18:20 | disposition home health service (06) | DRG 302 ==
LOC: EDBD 20:00 → EMR 20:30 → 2E 21:15 → EDBEDREQ 22:14
PROC: 30233N1 Transfusion of Nonautologous Red Blood Cells into Peripheral Vein, Percutaneous Approach (ICD-10-PCS; principal; 2018-05-25)
DX: I51.3 Intracardiac thrombosis, not elsewhere classified (principal); I50.33 Acute on chronic diastolic (congestive) heart failure; E43 Unspecified severe protein-calorie malnutrition; I13.0 Hypertensive heart and chronic kidney disease with heart failure and stage 1 through stage 4 chronic kidney disease, or unspecified chronic kidney disease; N17.9 Acute kidney failure, unspecified; I20.0 Unstable angina; R07.81 Pleurodynia; I48.0 Paroxysmal atrial fibrillation; N28.9 Disorder of kidney and ureter, unspecified; R00.0 Tachycardia, unspecified; J45.909 Unspecified asthma, uncomplicated; N18.3 Chronic kidney disease, stage 3 (moderate); Z68.26 Body mass index [BMI] 26.0-26.9, adult; Z88.0 Allergy status to penicillin; Z88.2 Allergy status to sulfonamides; E03.9 Hypothyroidism, unspecified; E83.42 Hypomagnesemia; Z94.7 Corneal transplant status; M19.90 Unspecified osteoarthritis, unspecified site; D64.9 Anemia, unspecified; I27.20 Pulmonary hypertension, unspecified; I16.0 Hypertensive urgency
CPT/HCPCS: 36415; 71045; 78452; 80048; 80053; 80061; 81003; 82550; 82553; 83605; 83735; 83880; 84484; 85007; 85025; 85610; 85730; 86710; 86850; 86900; 86901; 86920; 87040; 93005; 93017; 93306; 93970; 94640; 94664; 94760; 96365; 96368; 96375; 99285; J2785; J8499